=== PATIENT | male | born 1995 | race American Indian/Alaskan Native ===

== ENCOUNTER 2020-02-10 13:15 | Emergency (ER) | payer SELFPAY ==
[2020-02-10 13:29] VITALS: BP 113/51
--- NOTE | 2020-02-10 13:56 | Event Note ---
ED Screening Note Date of service: 02/10/20 Time: 13:55 ED Screening Note: 24-year-old -[place] male comes in with abscess to the right side of his neck x2 weeks progressively getting worse. This initial assessment/diagnostic orders/clinical plan/treatment(s) is/are subject to change based on patients health status, clinical progression and re- assessment by fellow clinical providers in the ED. Further treatment and workup at subsequent clinical providers discretion. Patient/guardian urged not to elope from the ED as their condition may be serious if not clinically assessed and managed. Initial orders include:
--- NOTE | 2020-02-10 14:36 | Emergency Department Report ---
Abscess Boil HPI - HPI Chief Complaint: Skin/Abscess/Foreign Body Stated Complaint: BUMP ON NECK Time Seen by Provider: 02/10/20 14:25 Duration: 1 Week Location: Neck Severity: Mild History: Yes Pain, No Fever, No Purulent Drainage, No Numbness, No Foreign Body, No Previous History, No Insect Bite HPI: This is a 24-year-old male nontoxic, well nourished in appearance, no acute signs of distress presents to the ED with c/o of pain and swelling to right face area x1 week. Patient denies any pus or drainage. Patient denies any fever, chills, nausea, vomiting, chest pain, shortness of breath, headache or stiff neck. Patient denies any allergies or significant past medical history. Home Medications: Home Medications Medication Instructions Recorded Confirmed Last Taken Permethrin 5% [Acticin 5% CREAM] 1 applicatio TP ONCE 03/08/15 03/08/15 Unknown Previous Rx's Medication Instructions Recorded Last Taken Type Griseofulvin, Microsize [Grifulvin 500 mg PO QDAY #28 tablet 03/08/15 Unknown Rx V] cephALEXin [Keflex] 500 mg PO Q8HR #21 cap 03/08/15 Unknown Rx hydrOXYzine PAMOATE [Vistaril] 25 mg PO Q6HR PRN #14 capsule 03/08/15 Unknown Rx Naproxen 500 mg PO Q12H PRN #12 tablet 02/10/20 Unknown Rx Sulfamethoxazole/Trimethoprim 1 each PO BID #14 tablet 02/10/20 Unknown Rx [Bactrim DS TAB] Allergies/Adverse Reactions: Allergies Allergy/AdvReac Type Severity Reaction Status Date / Time No Known Allergies Allergy Verified 03/08/15 14:32 ED Review of Systems ROS: Stated complaint: BUMP ON NECK Other details as noted in HPI Constitutional: denies: chills, fever Eyes: denies: eye pain, eye discharge, vision change ENT: denies: ear pain, throat pain Respiratory: denies: cough, shortness of breath, wheezing Cardiovascular: denies: chest pain, palpitations Endocrine: no symptoms reported Gastrointestinal: denies: abdominal pain, nausea, diarrhea Genitourinary: denies: urgency, dysuria Musculoskeletal: denies: back pain, joint swelling, arthralgia Skin: denies: rash, lesions Neurological: denies: headache, weakness, paresthesias Psychiatric: denies: anxiety, depression Hematological/Lymphatic: denies: easy bleeding, easy bruising ED Past Medical Hx - Past Medical History Previous Medical History?: Yes Hx Asthma: Yes Additional medical history: ECZEMA - Surgical History Past Surgical History?: No - Social History Smoking Status: Current Every Day Smoker Substance Use Type: Alcohol, Marijuana - Medications Home Medications: Home Medications Medication Instructions Recorded Confirmed Last Taken Type Griseofulvin, Microsize [Grifulvin 500 mg PO QDAY #28 tablet 03/08/15 Unknown Rx V] Permethrin 5% [Acticin 5% CREAM] 1 applicatio TP ONCE 03/08/15 03/08/15 Unknown History cephALEXin [Keflex] 500 mg PO Q8HR #21 cap 03/08/15 Unknown Rx hydrOXYzine PAMOATE [Vistaril] 25 mg PO Q6HR PRN #14 capsule 03/08/15 Unknown Rx Naproxen 500 mg PO Q12H PRN #12 tablet 02/10/20 Unknown Rx Sulfamethoxazole/Trimethoprim 1 each PO BID #14 tablet 02/10/20 Unknown Rx [Bactrim DS TAB] ED Abscess Boil Physical Exam - Exam General: Vital signs noted. No distress. Alert and acting appropriately. Front/Back of Body, Lg (Color): 1 - 2 cm abscess present Size: 2 cm Exam: Yes Tenderness, Yes Fluctuance, Yes Normal Neurologic Exam, Yes Normal Circulation, No Surrounding Cellulites/Erythema, No Lymphangitis, No Crepitation, No Heart Murmur I & D Note - I & D Note I & D Note: Under sterile field, I used Betadine to cleanse the area. I then used 2% lidocaine plain with 25-gauge 5/8 needle to inject area for anesthetic purposes. Total volume injected 3 mL. I then used an 11 blade to make a 1 cm incision. About 2 mL's of purulent drainage has been noted. I then used a hemostat to break the abscess formation. I then used sterile 0.9% normal saline flush to flush the wound with total volume of 40 mL used. I then put a 1/4 iodoform packing to the incision. A sterile 4 x 4 with tape has been applied as dressing. Bleeding is under control. Patient tolerated the procedure well with no signs of distress noted. ED Course Vital Signs 02/10/20 13:26 Temperature 97.9 F Pulse Rate 69 Respiratory 20 Rate Blood Pressure 113/51 O2 Sat by Pulse 98 Oximetry - Reevaluation(s) Reevaluation #1: 02/10/20 14:34 Patient is speaking in full sentences with no signs of distress noted. Critical care attestation.: If time is entered above; I have spent that time in minutes in the direct care of this critically ill patient, excluding procedure time. ED Medical Decision Making - Medical Decision Making This is a 24-year-old female that presents with right face abscess. Patient is stable and was examined by me. This is incision and drainage and has been performed and patient tolerated well. A sterile dressing has been applied. Patient was educated on proper wound care. Patient is discharged with Bactrim. Patient was instructed to return in 2 days for packing removal. Patient was instructed to refer to Follow-up with a primary care doctor in 3-5 days or if symptoms worsen and continue return to emergency room as soon as possible. At time of discharge, the patient does not seem toxic or ill in appearance. No acute signs of distress noted. Patient agrees to discharge treatment plan of care. No further questions noted by the patient. ED Disposition Clinical Impression: Abscess of face, Encounter for incision and drainage procedure Disposition: DC- TO HOME OR SELFCARE Is pt being admited?: No Does the pt Need Aspirin: No Condition: Stable Instructions: Skin Abscess, Incision and Drainage, Care After Additional Instructions: Follow-up with a primary care doctor in 3-5 days or if symptoms worsen and continue return to emergency room as soon as possible. Return in 2 days for packing removal. Prescriptions: Sulfamethoxazole/Trimethoprim [Bactrim DS TAB] 1 each PO BID #14 tablet Naproxen 500 mg PO Q12H PRN #12 tablet PRN Reason: Pain , Severe (7-10) Referrals: PRIMARY MD ABE [Referring] - 3-5 Days VIANCA CHRISTINE MD [Staff Physician] - 3-5 Days Time of Disposition: 15:22
== END 2020-02-10 15:42 | disposition home or self-care (01) ==
LOC: ED 13:15
DX: L02.01 Cutaneous abscess of face (principal); J45.909 Unspecified asthma, uncomplicated; F17.200 Nicotine dependence, unspecified, uncomplicated; F12.90 Cannabis use, unspecified, uncomplicated; Z79.899 Other long term (current) drug therapy; Z76.89 Persons encountering health services in other specified circumstances